=== PATIENT | female | born 1985 | race Caucasian/White ===

== ENCOUNTER 2017-03-21 14:02 | Emergency (ER) | payer MEDICAID ==
[~2017-03-21] VITALS: Ht 162.6 cm; Wt 61.2 kg
[2017-03-21 14:03] VITALS: Ht 162.6 cm; Wt 61.2 kg
[2017-03-21 18:24] LABS: microscopic required? YES; urine erythrocyte 3+ (NEGATIVE)
[2017-03-21 18:35] LABS: BASOPHIL % 0.3 % (0-2); PLATELET COUNT 233 x10^3mcL (130-400)
[2017-03-21 19:13] LABS: RED CELL DISTRIBUTION WIDTH 15.7 % (11.5-14.5)
[2017-03-21 20:50] VITALS: BP 131/80
== END 2017-03-21 20:50 | disposition home or self-care (01) ==
LOC: ED 14:02
PROVIDERS: Emergency Medicine
DX: O46.91 Antepartum hemorrhage, unspecified, first trimester (principal); Z3A.01 Less than 8 weeks gestation of pregnancy
CPT/HCPCS: 36415